=== PATIENT | male | born 1960 | race Caucasian/White ===

== ENCOUNTER 2016-10-10 11:32 | Observation (INO) | payer BC ==
[~2016-10-10] VITALS: Ht 167.6 cm; Wt 85.1 kg
[2016-10-10] MEDS ORDERED: SODIUM CHLORIDE 0.9% 1,000 ML IV SCH (11:58)
[2016-10-10 11:59] VITALS: BP 100/54
[2016-10-10] MEDS ORDERED: GLUC1CAP48 PO (12:19)
[2016-10-10] MEDS ORDERED: KRIL500C PO (12:19)
[2016-10-10] MEDS ORDERED: EPIN0.3P3 SC (12:19)
[2016-10-10] MEDS ORDERED: ALBU8.5H3 IH (12:19)
[2016-10-10] MEDS ORDERED: ALPR0.5T6 PO (12:19)
[2016-10-10] MEDS ORDERED: POTA20TA6 PO (12:19)
[2016-10-10] MEDS ORDERED: PROP20TA PO (12:19)
[2016-10-10] MEDS ORDERED: FENTANYL PF 100 MCG/2ML ONE ×2 (13:34→15:01)
[2016-10-10] MEDS ORDERED: MIDAZOLAM 1 MG/ML, 5ML ONE ×2 (13:34→15:01)
[2016-10-10] MEDS ORDERED: LIDOCAINE 2%, 20ML ONE ×2 (13:35→14:33)
[2016-10-10] MEDS ORDERED: VERAPAMIL 2.5 MG/ML, 2ML ONE (13:35)
[2016-10-10] MEDS ORDERED: HEPARIN 1,000 UNITS/ML, 10ML ONE (13:35)
[2016-10-10] MEDS ORDERED: CEFAZOLIN PMX 1GM/50ML 50 ML ONE (14:23)
[2016-10-10] MEDS ORDERED: CEFAZOLIN 1,000 MG ONE (14:23)
[2016-10-10] MEDS ORDERED: ONDANSETRON 2MG/ML, 2ML IV PRN (16:00)
[2016-10-10] MEDS ORDERED: EPINEPHRINE 1 MG/ML, 1ML SQ PRN (16:30)
[2016-10-10] MEDS ORDERED: [UNRECOGNIZED DRUG - REMARK] MC SCH (16:30)
[2016-10-10] MEDS ORDERED: ALBUTEROL HFA HOMEINH PRN (16:30)
[2016-10-10] MEDS ORDERED: CARVEDILOL 3.125 MG TABLET PO SCH (18:00)
[2016-10-10 20:56] VITALS: BP 108/66
[2016-10-10] MEDS ORDERED: ZOLPIDEM 5MG TABLET PO PRN (21:00)
[2016-10-10] MEDS: PROPRANOLOL 20 MG TABLET PO SCH (21:04)
[2016-10-10] MEDS: SODIUM CHLORIDE FLUSH 10ML SYR IVF SCH (21:04)
[2016-10-10] MEDS: HYDROcodone/APAP 5/325 TABLET PO PRN (21:09)
[2016-10-10] MEDS: CEFAZOLIN PMX 1GM/50ML 50 ML IVPB SCH (22:56)
[2016-10-11 02:49] VITALS: BP 111/68
[2016-10-11] MEDS: CEFAZOLIN PMX 1GM/50ML 50 ML IVPB SCH (06:27)
[2016-10-11] MEDS: HYDROcodone/APAP 5/325 TABLET PO PRN ×2 (06:44→07:25)
[2016-10-11 07:00] VITALS: BP 130/79
[2016-10-11] MEDS: SODIUM CHLORIDE FLUSH 10ML SYR IVF SCH (07:25)
[2016-10-11] MEDS: PROPRANOLOL 20 MG TABLET PO SCH (07:25)
[2016-10-11] MEDS ORDERED: POTASSIUM CHLORIDE 20 MEQ TAB.ER.PRT PO SCH (09:00)
== END 2016-10-11 11:22 | disposition home or self-care (01) ==
LOC: CACL 11:32 → ORIP 14:35 → 5SO 15:57 → DCLOUNGE 10-11 10:27
PROVIDERS: ADMIT Internal Medicine Cardiovascular Disease; ATTEND Internal Medicine Cardiovascular Disease
DX: I47.2 Ventricular tachycardia (principal); I49.5 Sick sinus syndrome; R55 Syncope and collapse; R00.1 Bradycardia, unspecified; G47.30 Sleep apnea, unspecified; I20.8 Other forms of angina pectoris
CPT/HCPCS: 33208; 71010; 93458; 96365; 96375; 99156; 99157; C1779; C1785; C1892; C1894; G0378; J0690; J1644; J2250; J3010; J3490; Q9967